=== PATIENT | female | born 1970 ===

== ENCOUNTER 2019-05-07 19:23 | Emergency (ER) | payer MEDICARE, SELFPAY ==
--- NOTE | 2019-05-07 19:25 | XR_ITS ---
WS: [id number] Right wrist, 3 views, 05/07/2019 Clinical Data: injury Comparison: None. Findings: There is an impacted fracture of the distal right radius. Soft tissue swelling about the wrist is see n. The distal right ulna is normal. The carpal bones are intact. XR/XR wrist RT min 3V* [id number] Impression: Impacted fracture of distal right radius.
[2019-05-07 19:41] VITALS: BP 108/80; PULSE 97; RESP 18; TEMP 37.2; O2SAT 99; BMI 26.4
--- NOTE | 2019-05-07 20:20 | ED_ITS ---
Documented by User: [email or web address] Constantino 05/08/19 00:33 HPI - Extremity Problem General: Chief complaint: Extremity Injury, Upper Stated complaint: right wrist pain Time Seen by Provider: 05/07/19 20:19 History of Present Illness: HPI Narrative: Patient is a 48-year-old female comes to the ED with right wrist pain. Patient is currently on hospice. Fall occurred on Monday night. Patient says she felt a little tired and weak and fell forward and caught herself with her right arm. She felt pain around her right wrist after fall. Denies any head injury or loss of consciousness. Patient currently has morphine she takes at home while on hospice. Associated symptoms: Deny chest pain, fever(s) or rash Review of Systems Const: Denies: fever, chills or fatigue Eyes: Denies: change in vision or eye discomfort ENMT: Denies: throat pain, painful swallowing, nasal discharge or nasal congestion Card: Denies: chest pain, palpitations, edema, swelling of feet/ankles, shortness of breath on exertion or shortness of breath when lying down Resp: Denies: shortness of breath, productive cough or non-productive cough GI: Denies: abdominal pain, nausea, vomiting, diarrhea, constipation or blood in stool : Denies: flank pain, painful urination or blood in urine Musc: Reports: extremity pain (right wrist) and extremity swelling (right wrist); Denies: neck pain or back pain Skin/Breast: Denies: rash or new lesion Neuro: Denies: headache, numbness in extremities or weakness in extremities [facility] ED PFSH: Social History Smoking and tobacco status: former smoker Physical Exam Const: COMMON NORMALS: oriented x3 HENMT: COMMON NORMALS: normocephalic HEAD & SCALP: normocephalic MOUTH: oral and palatal mucosa normal THROAT: posterior oropharynx normal and uvula midline Neck/C-Spine: COMMON NORMALS: supple GENERAL: Yes normal visual inspection Resp: COMMON NORMALS: normal respiratory effort, no retractions, no use of accessory muscles and clear to auscultation bilaterally AUSCULTATION: clear to auscultation bilaterally Cardio: COMMON NORMALS: regular rate, regular rhythm, S1 normal heart sound, S2 normal heart sound, no gallops, no clicks, no murmurs and peripheral pulses 2+ throughout RATE: regular rate RHYTHM: regular rhythm HEART SOUNDS: S1 normal and S2 normal PERIPHERAL PULSES: pulses 2+ throughout GI: COMMON NORMALS: normal to inspection, nondistended, normoactive bowel sounds, soft to palpation, non-tender and no masses PALPATION: Yes soft : COMMON NORMALS: Yes no CVA tenderness BLADDER/KIDNEY EXAM: Yes no CVA tenderness Back/Pelvis: COMMON NORMALS: no CVA tenderness Extremity: RIGHT UPPER EXTREMITY: Yes wrist Right wrist: Yes inspection (swelling and wrist appears to have a deformity. ), Yes palpation (lateral and medial aspect of wrist), Yes ROM (limited due to pain) and Yes neurovascular exam (intact, radial pulse 2+, sensation and movement in fingers. ) Neuro: COMMON NORMALS: oriented x3 and moves all extremities Skin: COMMON NORMALS: no rashes or lesions noted GENERAL SKIN EXAM: no rashes or lesions noted and dry skin Course Vital Signs: Vital signs: Vital Signs Temperature 99.0 F 05/07/19 19:41 Pulse Rate 86 05/07/19 21:47 Respiratory Rate 17 05/07/19 21:47 Blood Pressure 141/105 05/07/19 21:47 Pulse Oximetry 97 05/07/19 21:47 MDM - Extremity (Nontraumatic) MDM Narrative: Medical decision making narrative: Patient is a 48-year-old female who comes to the ED after having a fall complaining of right wrist pain. Physical exam showed swelling and tenderness to the right wrist upon palpation. Right wrist looked mildly deformed. X-ray of the right wrist showed a distal radial head fracture. Patient was put in a radial gutter splint and a orthoped ic referral was placed with social media campaign manager. Patient is currently on hospice and takes morphine for pain control. I instructed her to continue taking her morphine for pain control. Imaging Data^: Xray Ortho: Attestation: I personally reviewed and interpreted this imaging study as follows: Radiologist's impression: Right wrist x-ray performed-distal radial head fracture seen. Pending final radiology report. Discharge Plan Discharge Patient Disposition: Home, Self-Care Clinical Impression: Distal radius fracture, right Qualifiers: Encounter type: initial encounter Fracture type: closed Fracture morphology: Colles' Qualified Code(s): S52.531A - Colles' fracture of right radius, initial encounter for closed fracture Condition: Stable Discharge Orders: Discharge Order (Routine); Ordered 05/07/19 Ordered By: Ankit Sood Discharge Diet: Regular Discharge Activity: Limit activity as instructed Patient Instructions: Fractures - Colles', Fractures - Forearm Activity Restrictions/Additional Instructions: I placed a referral to [facility] [place] orthopedics. [facility] [place] orthopedics should be contacting you in the next several days to set up an appointment. Continue taking your previously prescribed pain medications to help with pain. Wear splint until directed otherwise by Ortho. Limit activity and use of right hand. Discharge Date/Time: 05/07/19 21:52 Coding Level of Care Code ED Puff Iron Operator for Chg Fwd Exam Comprehensive Documented by User: Amalia Jesus 05/08/19 11:20 HPI - Extremity Problem General: Chief complaint: Extremity Injury, Upper Stated complaint: right wrist pain Time Seen by Provider: 05/07/19 20:19 [facility] ED PFSH: Social History Smoking and tobacco status: former smoker Course Vital Signs: Vital signs: Vital Signs Temperature 99.0 F 05/07/19 19:41 Pulse Rate 86 05/07/19 21:47 Respiratory Rate 17 05/07/19 21:47 Blood Pressure 141/105 05/07/19 21:47 Pulse Oximetry 97 05/07/19 21:47 Discharge Plan Discharge Patient Disposition: Home, Self-Care Clinical Impression: Distal radius fracture, right Qualifiers: Encounter type: initial encounter Fracture type: closed Fracture morphology: Colles' Qualified Code(s): S52.531A - Colles' fracture of right radius, initial encounter for closed fracture Condition: Stable Discharge Orders: Discharge Order (Routine); Ordered 05/07/19 Ordered By: Ankit Sood Discharge Diet: Regular Discharge Activity: Limit activity as instructed Patient Instructions: Fractures - Colles', Fractures - Forearm Activity Restrictions/Additional Instructions: I placed a referral to [facility] [place] orthopedics. [facility] [place] orthopedics should be contacting you in the next several days to set up an appointment. Continue taking your previously prescribed pain medications to help with pain. Wear splint until directed otherwise by Ortho. Limit activity and use of right hand. Discharge Date/Time: 05/07/19 21:52 Coding Level of Care Code ED Puff Iron Operator for Richy Kathleen Exam Comprehensive
[2019-05-07 20:28] VITALS: BP 133/92; PULSE 98; RESP 18; O2SAT 99
--- NOTE | 2019-05-07 20:39 | PC.PHAR ---
PT JUST TRANSFERRED FROM A HOSPICE IN [place], TO ONE HERE. NEITHER SHE NOR HER FAMILY MEMBER WAS SURE OF THE STRENGTH OF HER MEDICATIONS, SUCH MORPHINE, PHENTNOL PATCH, ATAVAN. HER FAMILY MEMBER STATED THAT SHE WAS ONLY ON HOSPICE MEDICATIONS NOW.
[2019-05-07 20:46] VITALS: RESP 16; O2SAT 99
[2019-05-07] MEDS: morphine 4 mg/mL SDV 1 mL 2 MG IM ×2 (20:46→21:44)
[2019-05-07 21:44] VITALS: RESP 19; O2SAT 97
[2019-05-07 21:47] VITALS: BP 141/105; PULSE 86; RESP 17; O2SAT 97
--- NOTE | 2019-05-08 12:44 | DCPLANNER ---
utility manager had message to schedule a follow up appointment for patient with ortho. utility manager called ortho, spoke with Meena, gave clinic patients information. utility manager was told that patients information would be printed and reviewed. Clinic will call case packer and sealer and patient with appointment information.
--- NOTE | 2019-05-17 09:23 | DCPLANNER ---
Pat from ortho called case operator and stated that they received the referral to ortho for the patient. Pat stated that clinic called patient and offered to make a follow up appointment for patient. Pat stated that the clinic is waiting for patient to hear from patient on appointment. Patient is currently on hospice.
== END 2019-05-07 21:52 | disposition home or self-care (01) ==
PROVIDERS: Emergency Provider Physician Assistant
DX: S52.501A Unspecified fracture of the lower end of right radius, initial encounter for closed fracture (principal); Z87.891 Personal history of nicotine dependence; W18.30XA Fall on same level, unspecified, initial encounter; Y92.009 Unspecified place in unspecified non-institutional (private) residence as the place of occurrence of the external cause
CPT/HCPCS: 12345; 29125; 73110; 96372; 99281; 99283; J2270

== ENCOUNTER 2019-05-10 06:41 | Outpatient (CLI) | payer MEDICARE, OTHER, SELFPAY | END 2019-05-10 06:42 | disposition home or self-care (01) | LOC: ONCMED 06:42 | PROVIDERS: Visit Provider Internal Medicine Medical Oncology | DX: Z01.89 Encounter for other specified special examinations (principal) ==